=== PATIENT | female | born 1975 | race Caucasian/White ===

== ENCOUNTER → 2017-05-08 | Outpatient (CLI) | payer OTHER ==
--- NOTE | 2017-05-09 06:20 | RADIOLOGY REPORT PS360 ---
MRI-BRAIN W/O HISTORY: ACUTE INTRACTABLE HEADACHE intractable headache with pain at right occipital region. Intermittent dizziness. Blurred vision one year. Patient Age: 41 years: Female Ordering Physician: Kami Becker APRN TECHNIQUE: Noncontrast multiplanar MRI imaging brain performed includes. Multiplanar FLAIR, T1, T2 weighted images along with axial diffusion/ADC imaging performed on 1.5 T. Siemens, MRI. . COMPARISON : FINDINGS The sensitive FLAIR images show no deep white matter lesions. No evidence of recent or acute infarct onDiffusion images set specific to evaluate for such. No mass lesion or mass effect evident. Normal anatomy. Ventricles and basal cisterns normal.. Sella and pituitary unremarkable. Cranial cervical junction intact. Included Upper Cervical canal appears to be of modest volume but adequate. Posterior fossa appears satisfactory with cranial nerve VII and VIII seen passing into the respective IACs. Mastoid air cells with no significant findings. The paranasal sinuses are clear with only scant mucosal thickening at mid inferior ethmoid air cells noted s. Mild engorgement right nasal turbinates more so than left. Orbits and globes unremarkable IMPRESSION 1. Negative/normal MRI the brain. No mass nor lesions evident. Normal anatomy 2. Paranasal sinuses are well-developed and fairly clear. Only suggestion perhaps scant mucosal thickening at inferior mid ethmoid air cells
== END ==
LOC: RAD 08:45
DX: R51 Headache (principal)